=== PATIENT | male | born 1945 | race Caucasian/White ===

== ENCOUNTER 2019-06-04 10:28 | Emergency (ER) | payer MEDICARE, OTHER ==
--- OUTSIDE RECORDS SUMMARY | 2019-06-04 10:31 | XMS REPORT ---
:1945 Author Organization [facility] Address [address] [place] [address] Care Team Providers Name Role Phone MELIDA CERDA Unavailable Unavailable Problems This patient has no known problems. Allergies, Adverse Reactions, Alerts This patient has no known allergies or adverse reactions. Medications This patient has no known medications. Results Test Description Test Time Test Comments Text Results Atomic Results Result Comments POCT-GLUCOSE METER 2016-11-06 11:43:00 Test Item Value Reference Range Comments POC-GLUCOSE METER (BEAKER) (test 338 mg/dL 70-110 TESTED AT [address] qqtj=2628) [facility] [id number] POCT-GLUCOSE [id number] 08:19:00 Test Item Value Reference Range Comments POC-GLUCOSE METER (BEAKER) 191 mg/dL 70-110 TESTED AT [address] (test mpcf=5335) [facility] [address] POCT-GLUCOSE [id number] 21:37:00 Test Item Value Reference Range Comments POC-GLUCOSE METER (BEAKER) 261 mg/dL 70-110 TESTED AT [address] (test ladf=0043) [facility] [address] POCT-GLUCOSE [id number] 17:07:00 Test Item Value Reference Range Comments POC-GLUCOSE METER (BEAKER) 351 mg/dL 70-110 Notified JON GONZALES/TESTED AT [facility] (test rbqt=1438) [address] [place] [address] SEDIMENTATION [id number] 09:39:00 Test Item Value Reference Range Comments SEDIMENTATION RATE, ERYTHROCYTE (BEAKER) (test 18 mm/HR 0-40 ynhs=348) [id number] 08:51:00 Test Item Value Reference Range Comments RPR SCREEN (BEAKER) (test wqrd=936) Nonreactive Nonreactive POCT-GLUCOSE [id number] 08:15:00 Test Item Value Reference Range Comments POC-GLUCOSE METER (BEAKER) 163 mg/dL 70-110 TESTED AT [facility] [address] (test ovxg=3154) [facility] [address] BASIC METABOLIC [id number] 06:42:00 Test Item Value Reference Range Comments SODIUM (BEAKER) (test 139 meq/L 136-145 apum=390) POTASSIUM (BEAKER) (test 3.5 meq/L 3.5-5.1 uwmu=911) CHLORIDE (BEAKER) (test 102 meq/L 98-107 truz=154) CO2 (BEAKER) (test 25 meq/L 22-29 opdu=295) BLOOD UREA NITROGEN 17 mg/dL 7-21 (BEAKER) (test hgdq=149) CREATININE (BEAKER) (test 1.07 mg/dL 0.57-1.25 vpfu=362) GLUCOSE RANDOM (BEAKER) 115 mg/dL 70-105 (test aubd=167) CALCIUM (BEAKER) (test 9.1 mg/dL 8.4-10.2 ztjm=687) EGFR (BEAKER) (test 69 mL/min/1.73 sq m ESTIMATED GFR IS NOT gwqr=2626) ACCURATE CREATININE CLEARANCE IN PREDICTING GLOMERULAR FILTRATION RATE. ESTIMATED GFR IS NOT APPLICABLE FOR DIALYSIS PATIENTS. C-REACTIVE [id number] 06:42:00 Test Item Value Reference Range Comments C-REACTIVE PROTEIN (BEAKER) (test gnhc=186) 0.45 mg/dL 0.00-0.50 TSH/FREE T4 IF [id number] 06:41:00 Test Item Value Reference Range Comments THYROID STIMULATING HORMONE (BEAKER) (test 3.71 uIU/mL 0.35-4.94 pocx=376) VITAMIN B12 AND [id number] 06:41:00 Test Item Value Reference Range Comments VITAMIN B12 (BEAKER) (test xkqy=915) 686 pg/mL 213-816 FOLATE (BEAKER) (test bdlz=580) 14.7 ng/mL >=7.0 Effective 03/03/2014: Folate Reference Range ChangeNew: >=7.0 Previous: & gt;=[id number] 21:39:00 Test Item Value Reference Range Comments PROSTATE SPECIFIC ANTIGEN (BEAKER) (test okhz=172) 1.1 ng/mL 0.0-4.0 POCT-GLUCOSE [id number] 21:08:00 Test Item Value Reference Range Comments POC-GLUCOSE METER (BEAKER) 254 mg/dL 70-110 TESTED AT [facility] [address] [facility] (test nlwj=9619) [facility] [address] HEMOGLOBIN [id number] 20:39:00 Test Item Value Reference Range Comments HEMOGLOBIN A1C (BEAKER) (test jaav=188) 8.7 % 4.3-6.1 LIPID [id number] 19:44:00 Test Item Value Reference Range Comments TRIGLYCERIDES (BEAKER) (test menm=249) 341 mg/dL CHOLESTEROL (BEAKER) (test avhz=278) 218 mg/dL HDL CHOLESTEROL (BEAKER) (test jycg=126) 32 mg/dL LDL CHOLESTEROL CALCULATED (BEAKER) (test 118 mg/dL rcet=002) Triglyceride Reference Range: Low Risk <150 Borderline 150- 199 High Risk 200-499 Very High Risk >=500Cholesterol Reference Range: Low Risk <200 Borderline 200-239 High Risk > 240HDL Cholesterol Reference Range: Low Risk >=60 High Risk <40LDL Cholesterol Reference Range: Optimal <100 Near Optimal 100-129 Borderline 130-159 High 160-189 Very High >=190HEPATIC FUNCTION [id number] 19:44:00 Test Item Value Reference Range Comments TOTAL PROTEIN (BEAKER) (test pgui=974) 7.3 gm/dL 6.0-8.3 ALBUMIN (BEAKER) (test auoc=8006) 4.5 g/dL 3.5-5.0 BILIRUBIN TOTAL (BEAKER) (test oala=027) 0.4 mg/dL 0.2-1.2 BILIRUBIN DIRECT (BEAKER) (test fpnk=213) 0.1 mg/dL 0.1-0.5 ALKALINE PHOSPHATASE (BEAKER) (test ubkp=564) 69 U/L 40-150 AST (SGOT) (BEAKER) (test nfgm=811) 24 U/L 5-34 ALT (SGPT) (BEAKER) (test pvch=836) 28 U/L 6-55 [id number] 19:43:00 Test Item Value Reference Range Comments PHOSPHORUS (BEAKER) (test nlrk=278) 3.3 mg/dL 2.3-4.7 [id number] 19:43:00 Test Item Value Reference Range Comments MAGNESIUM (BEAKER) (test jhxg=004) 1.4 mg/dL 1.6-2.6 CBC W/PLT COUNT & AUTO [id number] 18:52:00 Test Item Value Reference Range Comments WHITE BLOOD CELL COUNT (BEAKER) (test rkvy=959) 7.6 K/ L 4.0-10.0 RED BLOOD CELL COUNT (BEAKER) (test ostf=129) 4.38 M/ L 4.20-5.80 HEMOGLOBIN (BEAKER) (test wygl=019) 13.6 GM/DL 13.0-16.8 HEMATOCRIT (BEAKER) (test kire=451) 39.2 % 40.0-50.0 MEAN CORPUSCULAR VOLUME (BEAKER) (test espl=741) 89.5 fL 82.0-98.0 MEAN CORPUSCULAR HEMOGLOBIN (BEAKER) (test 31.1 pg 27.0-33.0 fbon=042) MEAN CORPUSCULAR HEMOGLOBIN CONC (BEAKER) (test 34.7 GM/DL 32.0-36.0 wnet=667) RED CELL DISTRIBUTION WIDTH (BEAKER) (test 13.2 % 10.3-14.2 xblx=315) PLATELET COUNT (BEAKER) (test phdc=286) 207 K/CU MM 150-430 MEAN PLATELET VOLUME (BEAKER) (test hggj=591) 7.1 fL 6.5-10.5 NUCLEATED RED BLOOD CELLS (BEAKER) (test 0 /100 WBC 0-0 gnxe=505) NEUTROPHILS RELATIVE PERCENT (BEAKER) (test 59 % hipk=286) LYMPHOCYTES RELATIVE PERCENT (BEAKER) (test 31 % wlhk=826) MONOCYTES RELATIVE PERCENT (BEAKER) (test 7 % yeqg=463) EOSINOPHILS RELATIVE PERCENT (BEAKER) (test 3 % yhat=296) BASOPHILS RELATIVE PERCENT (BEAKER) (test 1 % xzee=520) NEUTROPHILS ABSOLUTE COUNT (BEAKER) (test 4.49 K/ L 1.80-8.00 arrq=750) LYMPHOCYTES ABSOLUTE COUNT (BEAKER) (test 2.32 K/ L 1.48-4.50 vibs=186) MONOCYTES ABSOLUTE COUNT (BEAKER) (test 0.53 K/ L 0.00-1.30 nxkt=763) EOSINOPHILS ABSOLUTE COUNT (BEAKER) (test 0.22 K/ L 0.00-0.50 megr=071) BASOPHILS ABSOLUTE COUNT (BEAKER) (test 0.06 K/ L 0.00-0.20 iwcw=952) 0.00
--- NOTE | 2019-06-04 12:29 | EKG ---
Test Date: 2019-06-04 Test Time: 12:00:55 Turntable Man: WILLIAM MEASUREMENT RESULTS: Intervals: Rate: 61 NE: 200 QRSD: 88 QT: 446 QTc: 448 [place]: P: 47 NE: 200 QRS: -14 T: 47 INTERPRETIVE STATEMENTS: Normal sinus rhythm Low voltage QRS Borderline ECG Compared to ECG 06/14/2017 09:59:50 Low QRS voltage now present Electronically Signed On 06-04-19 12:29:19 [employer]IELD CLEANER by Jorge Ramsey
--- NOTE | 2019-06-04 12:45 | RAD REPORT ---
EXAM DESCRIPTION: CT - Head Brain Wo Cont - 06/04/2019 12:34 pm CLINICAL HISTORY: Dizziness COMPARISON: 2018 TECHNIQUE: Computed axial tomography of the head was obtained. IV contrast was not requested. All CT scans are performed using dose optimization technique as appropriate and may include automated exposure control or mA/KV adjustment according to patient size. FINDINGS: An intracranial bleed is not seen . The ventricles are normal in caliber. No extra-axial fluid collection is noted. Fluid within the sinuses/ mastoids is not seen. IMPRESSION: No acute intracranial abnormality is seen. If patient's symptoms persist MRI of the bra in would be recommended.
[2019-06-04 12:59] LABS: Absolute Lymphocytes (CBC) 1.5 K/uL (0.7-4.9); Basophils % 0.5 % (0-1.3); Lymphocytes % 20.9 % (15.3-44.8); MPV 8.3 fL (7.6-11.3); Protime INR 0.99; RBC Red Blood Cell Count 4.15 M/uL (4.33-5.43)
[2019-06-04 13:11] LABS: BUN Blood Urea Nitrogen 14 mg/dL (7-18); Bicarbonate 30 mmol/L (21-32); Glucose Level 219 mg/dL (74-106); Potassium 3.9 mmol/L (3.5-5.1); Sodium Level 139 mmol/L (136-145); Troponin (Emerg Dept Use Only) < 0.02 ng/mL (0.0-0.045)
--- NOTE | 2019-06-04 13:53 | RAD REPORT ---
EXAM DESCRIPTION: CT - Head angio - 06/04/2019 1:42 pm CLINICAL HISTORY: DIZZINESS Headache, drowsiness, hypertension COMPARISON: Head Brain Wo Cont dated 06/04/2019; Head Brain Wo Cont dated 06/14/2017 TECHNIQUE: CT angiography of the head was performed with MIPs. All CT scans are performed using dose optimization technique as appropriate and may include automated exposure control or mA/KV adjustment according to patient size. FINDINGS: No evidence of aneurysm is detected. No flow-limiting stenosis or vascular malformation id entified. Antegrade flow is seen in the vertebral arteries. The vertebral arteries are codominant. The visualized dural venous sinuses are patent. IMPRESSION: No significant flow abnormality is detected.
--- NOTE | 2019-06-04 13:56 | RAD REPORT ---
EXAM DESCRIPTION: CT - Neck Angio - 06/04/2019 1:42 pm CLINICAL HISTORY: dizziness Headache, drowsiness, syncope COMPARISON: No comparisons TECHNIQUE: CT angiography of the neck vessels was performed with MIPs. All CT scans are performed using dose optimization technique as appropriate and may include automated exposure control or mA/KV adjustment according to patient size. 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 No significant flow abnormality is seen of the common carotid bilaterally. No significant stenosis is identified involving the cervical segments of both internal carotid arteri es. Normal flow is seen within both vertebral arteries. IMPRESSION: No significant flow abnormality of the neck vessels is identified.
--- NOTE | 2019-06-04 14:23 | ER ---
Nurse's Notes [facility] Name: Jaxon Ayala III Age: 73 yrs Sex: Male : 1945 Arrival Date: 06/04/2019 Time: 10:30 Bed 5 Private MD: Diagnosis: Dizziness and giddiness Presentation: 06/04 11:07 Presenting complaint: Patient states: had some high BP readings this morning, BP was in iw 180's systolic, normally is in 110's takes lisinopril and metoprolol for BP, has not missed any doses, also was feeling weak and dizzy this morning, denies chest pain, no headache or blurry vision, did not have an appetite this morning. Transition of care: patient was not received from another setting of care. Onset of symptoms was June 04, 2019. Risk Assessment: Do you want to hurt yourself or someone else? Patient reports no desire to harm self or others. Initial Sepsis Screen: Does the patient meet any 2 criteria? No. Patient's initial sepsis screen is negative. Does the patient have a suspected source of infection? No. Patient's initial sepsis screen is negative. Care prior to arrival: None. 11:07 Method Of Arrival: Ambulatory iw 11:07 Acuity: DEMI 3 iw Historical: - Allergies: 11:14 Morphine; iw - Home Meds: 11:14 atorvastatin 40 mg oral tab 1 tab once daily [Active]; alpha lipoic acid 100 mg oral iw cap daily [Active]; chondroitin-glucosamine daily [Active]; clopidogrel 75 mg oral tab 1 tab once daily [Active]; coenzyme Q10 10 mg oral cap daily [Active]; cyanocobalamin (vitamin B-12) 1,000 mcg oral tab daily [Active]; diclofenac-capsicum topical topical [Active]; gabapentin 300 mg oral cap 1 cap 3 times per day [Active]; hydrochlorothiazide 25 mg Oral tab 0.5 tab once daily [Active]; insulin aspart subcutaneous subcutaneous after meals [Active]; insulin detemir subcutaneous 90 units subcutaneous [Active]; isosorbide mononitrate 60 mg Oral Tb24 1 tab once daily [Active]; lisinopril 40 mg Oral tab 1 tab once daily [Active]; metoprolol tartrate 100 mg Oral tab 1 tab 2 times per day [Active]; ranitidine HCl 150 mg Oral cap 1 cap once daily [Active]; terazosin 10 mg oral cap 1 cap once daily [Active]; zolpidem 5 mg Oral tab 1 tab once daily [Active]; - PMHx: 11:14 CAD; Diabetes - IDDM; Hyperlipidemia; Hypertension; TIA; iw - PSHx: 11:14 cardiac stent; Hernia repair; Knee surgery; iw - Immunization history:: Adult Immunizations up to date. - Coronavirus screen:: The patient has NOT traveled to [place] in the past 14 days. Proceed with normal triage process as indicated. - Social history:: Smoking status: Patient/guardian denies using tobacco, the patient reports quitting approximately 30 years ago. - Family history:: not pertinent. - Ebola Screening: : Patient negative for fever greater than or equal to 101.5 degrees Fahrenheit, and additional compatible Ebola Virus Disease symptoms Patient denies exposure to infectious person Patient denies travel to an Ebola-affected area in the 21 days before illness onset No symptoms or risks identified at this time. - Hospitalizations: : No recent hospitalization is reported. Screenin:48 Abuse screen: Denies threats or abuse. Nutritional screening: No deficits noted. rb1 Tuberculosis screening: No symptoms or risk factors identified. Fall Risk None identified. Assessment: 11:48 General: Appears in no apparent distress. comfortable, Behavior is calm, cooperative. rb1 Pain: Denies pain. Neuro: Level of Consciousness is awake, alert, obeys commands, Oriented to person, place, time, situation. Neuro: Reports dizziness, This morning for about 30-40 minutes while his blood pressure was elevated. Pt. reports symptoms have resolved at this time weakness. 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 Cardiovascular: Capillary refill < 3 seconds is brisk in bilateral fingers. Respiratory: Airway is patent Respiratory effort is even, unlabored, Respiratory pattern is regular, symmetrical. GI: No signs and/or symptoms were reported involving the gastrointestinal system. : No signs and/or symptoms were reported regarding the genitourinary system. Derm: Skin is pink, warm \T\ dry. Musculoskeletal: Range of motion: intact in all extremities. 12:45 Reassessment: Patient appears in no apparent distress at this time. No changes from rb1 previously documented assessment. 13:43 Reassessment: Patient appears in no apparent distress at this time. Patient and/or rb1 family updated on plan of care and expected duration. Pain level reassessed. Patient is alert, oriented x 3, equal unlabored respirations, skin warm/dry/pink. Patient denies pain at this time. 14:42 Reassessment: Patient appears in no apparent distress at this time. No changes from rb1 previously documented assessment. Vital Signs: 11:14 BP 148 / 69; Pulse 56; Resp 16; Temp 97.9; Pulse Ox 97% on R/A; Weight 113.4 kg; Height iw 5 ft. 10 in. (177.80 cm); Pain 0/10; 12:00 BP 138 / 66; Pulse 57; Resp 19; Pulse Ox 99% on R/A; Pain 0/10; rb1 12:58 BP 144 / 56; Pulse 54; Resp 18; Pulse Ox 99% on R/A; ph 14:39 BP 141 / 70; Pulse 57; Resp 16; Temp 97.5; Pulse Ox 98% on R/A; ph 11:14 Body Mass Index 35.87 (113.40 kg, 177.80 cm) iw ED Course: 10:30 Patient arrived in ED. rg4 11:09 Triage completed. iw 11:14 Arm band placed on. iw 11:41 Wiliam Purcell MD is Attending Physician. rn 11:48 Patient has correct armband on for positive identification. Placed in gown. Bed in low rb1 position. Call light in reach. Side rails up X 1. engraver set up operator on. Pulse ox on. NIBP on. Warm blanket given. 12:01 EKG done, by substation technician. reviewed by Wiliam Purcell MD. at1 12:29 Juliet Pérez, RN is Primary Nurse. ph 12:43 CT Head Brain wo Cont In Process Unspecified. EDMS 12:48 Inserted saline lock: 22 gauge in left antecubital area, using aseptic technique. Blood ph collected. 13:51 CT Head Angio In Process Unspecified. EDMS 13:51 CT Neck Angio In Process Unspecified. EDMS 14:22 Jere Johnson MD is Referral Physician. rn 14:39 No provider procedures requiring assistance completed. ph 14:45 IV discontinued, intact, bleeding controlled, No redness/swelling at site. Pressure rb1 dressing applied. Administered Medications: No medications were administered Outcome: 14:22 Discharge ordered by . rn 14:45 Discharged to home ambulatory, with family. rb1 14:45 Condition: stable 14:45 Discharge instructions given to patient, Instructed on discharge instructions, follow up and referral plans. Demonstrated understanding of instructions, follow-up care, Prescriptions given X none 14:46 Patient left the ED. rb1 Signatures: Dispatcher [employer] EDRaina Almaguer RN RN iw Wiliam Purcell MD MD rn Amanda Daniel, recycling operations manager EKG Tat1 Juliet Pérez RN RN Cindi Ansari RN RN rb1 Pedro, Leda rg4
--- NOTE | 2019-06-04 14:24 | EDPHYS ---
Physician Documentation [facility] Name: Jaxon Ayala III Age: 73 yrs Sex: Male : 1945 Arrival Date: 06/04/2019 Time: 10:30 Bed 5 Private MD: ED Physician Wiliam Purcell HPI: 06/04 12:11 This 73 yrs old Male presents to ER via Ambulatory with complaints of High rn Blood Pressure, Dizziness. 12:11 The patient presents with dizziness. Onset: The symptoms/episode began/occurred just rn prior to arrival. Context: occurred at home, occurred while the patient was at rest. Context: occurred while the patient was standing. Modifying factors: The symptoms are alleviated by. Modifying factors: the symptoms are aggravated by standing up. Severity of symptoms: At their worst the symptoms were mild in the emergency department the symptoms have improved. The patient has not experienced similar symptoms in the past. Reports was at home, got up to get some more coffee, felt dizziness, no other neurological complaint, lasted approx 30-40 min, now resolved. Has had TIA in past. NO chest pain/sob/abd pain/vomiting/diarrhea. . Historical: - Allergies: 11:14 Morphine; iw - Home Meds: 11:14 atorvastatin 40 mg oral tab 1 tab once daily [Active]; alpha lipoic acid 100 mg oral iw cap daily [Active]; chondroitin-glucosamine daily [Active]; clopidogrel 75 mg oral tab 1 tab once daily [Active]; coenzyme Q10 10 mg oral cap daily [Active]; cyanocobalamin (vitamin B-12) 1,000 mcg oral tab daily [Active]; diclofenac-capsicum topical topical [Active]; gabapentin 300 mg oral cap 1 cap 3 times per day [Active]; hydrochlorothiazide 25 mg Oral tab 0.5 tab once daily [Active]; insulin aspart subcutaneous subcutaneous after meals [Active]; insulin detemir subcutaneous 90 units subcutaneous [Active]; isosorbide mononitrate 60 mg Oral Tb24 1 tab once daily [Active]; lisinopril 40 mg Oral tab 1 tab once daily [Active]; metoprolol tartrate 100 mg Oral tab 1 tab 2 times per day [Active]; ranitidine HCl 150 mg Oral cap 1 cap once daily [Active]; terazosin 10 mg oral cap 1 cap once daily [Active]; zolpidem 5 mg Oral tab 1 tab once daily [Active]; - PMHx: 11:14 CAD; Diabetes - IDDM; Hyperlipidemia; Hypertension; TIA; iw - PSHx: 11:14 cardiac stent; Hernia repair; Knee surgery; iw - Immunization history:: Adult Immunizations up to date. - Coronavirus screen:: The patient has NOT traveled to [place] in the past 14 days. Proceed with normal triage process as indicated. - Social history:: Smoking status: Patient/guardian denies using tobacco, the patient reports quitting approximately 30 years ago. - Family history:: not pertinent. - Ebola Screening: : Patient negative for fever greater than or equal to 101.5 degrees Fahrenheit, and additional compatible Ebola Virus Disease symptoms Patient denies exposure to infectious person Patient denies travel to an Ebola-affected area in the 21 days before illness onset No symptoms or risks identified at this time. - Hospitalizations: : No recent hospitalization is reported. ROS: 12:11 Constitutional: Negative for fever, chills, and weight loss, Eyes: Negative for injury, rn pain, redness, and discharge, Neck: Negative for injury, pain, and swelling, Cardiovascular: Negative for chest pain, palpitations, and edema, Respiratory: Negative for shortness of breath, cough, wheezing, and pleuritic chest pain, Abdomen/GI: Negative for abdominal pain, nausea, vomiting, diarrhea, and constipation, MS/Extremity: Negative for injury and deformity, Skin: Negative for injury, rash, and discoloration, Neuro: Negative for headache, weakness, numbness, tingling, and seizure. Exam: 12:11 Constitutional: This is a well developed, well nourished patient who is awake, alert, rn and in no acute distress. Head/Face: Normocephalic, atraumatic. Eyes: Pupils equal round and reactive to light, extra-ocular motions intact. + left bells palsy Cardiovascular: Regular rate and rhythm. No pulse deficits. Respiratory: No increased work of breathing, no retractions or nasal flaring. Abdomen/GI: soft, non-tender Skin: Warm, dry MS/ Extremity: Pulses equal, no cyanosis. Neurovascular intact. Full, normal range of motion. Equal circumference. Neuro: Awake and alert, GCS 15, oriented to person, place, time, and situation. Cranial nerves II-XII grossly intact. Motor strength 5/5 in all extremities. Sensory grossly intact. Cerebellar exam normal. Vital Signs: 11:14 BP 148 / 69; Pulse 56; Resp 16; Temp 97.9; Pulse Ox 97% on R/A; Weight 113.4 kg; Height iw 5 ft. 10 in. (177.80 cm); Pain 0/10; 12:00 BP 138 / 66; Pulse 57; Resp 19; Pulse Ox 99% on R/A; Pain 0/10; rb1 12:58 BP 144 / 56; Pulse 54; Resp 18; Pulse Ox 99% on R/A; ph 14:39 BP 141 / 70; Pulse 57; Resp 16; Temp 97.5; Pulse Ox 98% on R/A; ph 11:14 Body Mass Index 35.87 (113.40 kg, 177.80 cm) iw MDM: 11:41 Patient medically screened. rn 14:19 Differential diagnosis: hypovolemia, idiopathic dizziness, TIA, vertigo, malignant HTN. rn Data reviewed: vital signs, nurses notes, lab test result(s), EKG, radiologic studies, CT scan, and as a result, I will discharge patient. Counseling: I had a detailed discussion with the patient and/or guardian regarding: the historical points, exam findings, and any diagnostic results supporting the discharge/admit diagnosis, lab results, radiology results, the need for outpatient follow up, to return to the emergency department if symptoms worsen or persist or if there are any questions or concerns that arise at home. Response to treatment: the patient's symptoms have resolved after treatment, the patient's condition has returned to base line, the patient is now symptom free, and as a result, I will discharge patient. Special discussion: I discussed with the patient/guardian in detail that at this point there is no indication for admission to the hospital. It is understood, however, that if the symptoms persist or worsen the patient needs to return immediately for re-evaluation. Based on the history and exam findings, there is no indication for further emergent testing or inpatient evaluation. I discussed with the patient/guardian the need to see the neurologist for further evaluation of the symptoms. I discussed with the patient/guardian the need to see the primary care provider for further evaluation of the symptoms. ED course: Pt back to baseline, difficult to tell if symptoms as result of HTN, or maybe TIA, already on plavix and aspirin, no acute flow findings on CT angio of head/neck, will dc home with neuro and pcp f/u. Return precautions given and understood. . 06/04 11:58 Order name: Basic Metabolic Panel; Complete Time: 13:42 rn 06/04 11:58 Order name: CBC with Diff; Complete Time: 13:03 rn 06/04 11:58 Order name: CT Head Brain wo Cont; Complete Time: 13:42 rn 06/04 11:58 Order name: Protime (+inr); Complete Time: 13:03 rn 06/04 11:58 Order name: Ptt, Activated; Complete Time: 13:03 rn 06/04 11:58 Order name: Troponin (emerg Dept Use Only); Complete Time: 13:42 rn 06/04 11:58 Order name: EKG; Complete Time: 11:59 rn 06/04 11:58 Order name: Cardiac monitoring; Complete Time: 12:53 rn 06/04 11:58 Order name: EKG - Nurse/Tech; Complete Time: 12:58 rn 06/04 11:58 Order name: IV Saline Lock; Complete Time: 12:53 rn 06/04 11:58 Order name: Labs collected and sent; Complete Time: 12:53 rn 06/04 11:58 Order name: NPO; Complete Time: 12:58 rn 06/04 13:03 Order name: CT Head Angio rn 06/04 13:03 Order name: CT Neck Angio rn 06/04 11:58 Order name: O2 Per Protocol; Complete Time: 12:58 rn 06/04 11:58 Order name: O2 Sat Monitoring; Complete Time: 12:58 rn Administered Medications: No medications were administered Disposition: 06/04/19 14:22 Discharged to Home. Impression: Dizziness and giddiness. - Condition is Stable. - Discharge Instructions: Dizziness, Transient Ischemic Attack. - Medication Reconciliation Form, Thank You Letter, Antibiotic Education, Prescription Opioid Use form. - Follow up: Jere Johnson MD; When: As needed; Reason: Recheck today's complaints, Re-evaluation by your physician. - Problem is new. - Symptoms are resolved. Signatures: Dispatcher [employer] EDRaian Almaguer, RN RN Wiliam Rosales MD MD rn Barber, Rebecca RN RN rb1 Corrections: (The following items were deleted from the chart) 12:16 12:11 Constitutional: This is a well developed, well nourished patient who is awake, rn alert, and in no acute distress. rn 14:20 12:11 Constitutional: This is a well developed, well nourished patient who is awake, rn alert, and in no acute distress. Head/Face: Normocephalic, atraumatic. Cardiovascular: Regular rate and rhythm. No pulse deficits. Respiratory: No increased work of breathing, no retractions or nasal flaring. Abdomen/GI: soft, non-tender Skin: Warm, dry MS/ Extremity: Pulses equal, no cyanosis. Neurovascular intact. Full, normal range of motion. Equal circumference. Neuro: Awake and alert, GCS 15, oriented to person, place, time, and situation. Cranial nerves II-XII grossly intact. Motor strength 5/5 in all extremities. Sensory grossly intact. Cerebellar exam normal. rn 14:46 14:22 06/04/2019 14:22 Discharged to Home. Impression: Dizziness and giddiness. rb1 Condition is Stable. Forms are Medication Reconciliation Form, Thank You Letter, Antibiotic Education, Prescription Opioid Use. Follow up: Jere Johnson; When: As needed; Reason: Recheck today's complaints, Re-evaluation by your physician. Problem is new. Symptoms are resolved. rn
[2019-06-04 16:33] VITALS: BP 141/70; TEMP 97.5; O2SAT 98
== END 2019-06-04 14:46 | disposition home or self-care (01) ==
LOC: ER 10:28
DX: R42 Dizziness and giddiness (principal); I10 Essential (primary) hypertension; E11.9 Type 2 diabetes mellitus without complications; E78.5 Hyperlipidemia, unspecified; Z79.4 Long term (current) use of insulin; Z79.01 Long term (current) use of anticoagulants; Z95.9 Presence of cardiac and vascular implant and graft, unspecified
CPT/HCPCS: 93005; 85025; 80048; 36415; 85610; 85730; 84484; 70450; 70496; 70498; Q9967

== ENCOUNTER 2022-03-31 10:51 | Observation (INO) | payer OTHER ==
--- OUTSIDE RECORDS SUMMARY | 2022-03-31 10:54 | XMS REPORT | Continuity of Care Document ---
:1945 Author Organization [facility] t Address [facility] [address] [place] [address] Care Team Providers Name Role Phone Sharpless Primary Care Physician MELIDA CERDA Attending Clinician Unavailable MELIDA CERDA Admitting Clinician Unavailable Problems Condition Condition Condition Status Onset Resolution Last Treating Co mments Source Name Details Category Date Date Treatment Clinician Date TIA TIA Disease Active [facility] (transient (transient 11-04 [facility] ischemic ischemic 00:00: Medica l attack) attack) 00 [place] CAD CAD Disease Active [facility] (coronary (coronary 11-04 [facility] artery artery 00:00: Medical disease) disease) 00 [place] Hypertensi Hypertensi Disease Active [facility] on 11-04 [facility] 00:[facility]: Medical 00 [place] Hyperchole Hyperchole Disease Active [facility] sterolemia sterolemia 11-04 [facility] 00:00: Medical 00 Center Allergies, Adverse Reactions, Alerts Allergy Allergy Status Severity Reaction(s) Onset Inactive Treating Comm ents Source Name Type Date Date Clinician Ragweed Propensi Active Moderate [facility] 11[facility]04 [facility] adverse 00:00: sneezing Medical reaction 00 Center s Social History Social Habit Start Date Stop Date Quantity Comments Source Sex Assigned At [address] [facility]ene kes 00:00:00 00:[facility]:00 [facility] Medications Ordered Filled Start Stop Current Ordering Indication Dosage Frequency Signature Comments Components Source Medication Medication Date Date Medication? Clinician (SIG) Name Name gabapentin Yes 300mg QD Take [address] (NEURONTIN) 7-24 mg by [facility] 300 MG 14:40: mouth Medical capsule 16 nightly. 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 hydroCHLORO 2017 Yes 12.5mg QD Take 12.[address] [facility] thiazide 7-24 mg by [facility] (HYDRODIURI 14:40: mouth Medic al L) 25 MG 16 every Center tablet morning. insulin 2017 Yes 10U Inject 10 [facility] aspart 7-24 Units [facility] (NOVOLOG) 14:40: subcutaneo Me dical 100 unit/mL 16 usly every Ce nter InPn evening before dinner. insulin 2017 Yes 100U Q.5D Inject [address] [facility] [address] detemir 7-24 Units [facility] (LEVEMIR) 14:40: subcutaneo Me dical 100 unit/mL 16 usly 2 Center injection (two) times daily Every morning and evening . lisinopril Yes hypertensio 40mg QD Take [address] [facility] (PRINIVIL,Z 7-24 n by mouth [facility] ESTRIL) 40 14:40: daily. Medic al MG tablet 16 [place] metFORMIN Yes 1000mg Q.5D Take 1,[address] [facility] (GLUCOPHAGE 7-24 mg by [facility] ) 500 MG 14:40: mouth 2 Medica l tablet 16 (two) Center times daily. metoprolol 2017 Yes hypertensio 25mg Q.5D Take [address] [facility] (LOPRESSOR) 7-24 n by mouth 2 [facility]ene kes 50 MG 14:40: (two) Medical tablet 16 times Center daily. omeprazole 2017-0 Yes 20mg QD Take [address] (PRILOSEC 7-24 by mouth [facility] OTC) 20 MG 14:40: daily. Medic al tablet 16 Center terazosin 2017 Yes 10mg QD Take [address] [facility] (HYTRIN) 10 7-24 by mouth [facility] MG capsule 14:40: nightly. Med ical 16 [place] zolpidem 20170 Yes 5mg Take [address] [facility] (AMBIEN) 5 7-24 by mouth [facility] MG tablet 14:40: every Medical 16 night as Center needed for Insomnia. aspirin 81 Yes 81mg QD Take [address] MG chewable 7-24 by mouth [facility] tablet 14:40: daily. Medical 16 Center atorvastati Yes 40mg QD Take [address] [facility] n (LIPITOR) 7-24 by mouth [facility] 40 MG 14:40: nightly. Medical tablet 16 Center Procedures This patient has no known procedures. Results Test Description Test Time Test Comments Results Result Comments Source POCT-GLUCOSE METER 2016-11-06 11:43:00 Test Item Value Reference Range Interpretation Comme nts POC-GLUCOSE METER ([facility]) (test 338 mg/dL 70-110 H TESTED AT [address] code = 1538) [facility] 7703 0 POCT-GLUCOSE [id number] 08:19:00 Test Item Value Reference Range Interpretation Comments POC-GLUCOSE METER 191 mg/dL 70-110 H TESTED AT [place] [address] ([facility]) (test code = AMANDA [facility] 1538) [address] POCT-GLUCOSE [id number] 21:37:00 Test Item Value Reference Range Interpretation Comments POC-GLUCOSE METER 261 mg/dL 70-110 H TESTED AT [place] [address] ([facility]) (test code = [facility]DA [facility] 1538) [address] POCT-GLUCOSE [id number] 17:07:00 Test Item Value Reference Range Interpretation Comments POC-GLUCOSE METER 351 mg/dL 70-110 H Notified R Kena GONZALES/TESTED ([facility]) (test code = AT [address] 1538) [facility] 7703 0 SEDIMENTATION [id number] 09:39:00 Test Item Value Reference Range Interpretation Comments SEDIMENTATION RATE, ERYTHROCYTE 18 mm/HR 0-40 ([facility]) (test code = 766) [id number] 08:51:00 Test Item Value Reference Range Interpretation Comments RPR SCREEN ([facility]) (test code = Nonreactive Nonreactive 420) POCT-GLUCOSE [id number] 08:15:00 Test Item Value Reference Range Interpretation Comments POC-GLUCOSE METER 163 mg/dL 70-110 H TESTED AT [place] [address] ([facility]) (test code = [facility]DA [facility] 2876) [address] BASIC METABOLIC [id number] 06:42:00 Test Item Value Reference Range Interpretation Comments SODIUM (BEAKER) 139 meq/L 136-145 (test code = 381) POTASSIUM (BEAKER) 3.5 meq/L 3.5-5.1 (test code = 379) CHLORIDE (BEAKER) 102 meq/L 98-107 (test code = 382) CO2 (BEAKER) (test 25 meq/L 22-29 code = 355) BLOOD UREA NITROGEN 17 mg/dL 7-21 (BEAKER) (test code = 354) CREATININE (BEAKER) 1.07 mg/dL 0.57-1.25 (test code = 358) GLUCOSE RANDOM 115 mg/dL 70-105 H (BEAKER) (test code = 652) CALCIUM (BEAKER) 9.1 mg/dL 8.4-10.2 (test code = 697) EGFR (BEAKER) (test 69 mL/min/1.73 ESTIMA UMER GFR IS code = 1092) sq m NOT ACCURATE CREATININE CLEARANCE IN PREDICTING GLOMERULAR FILTRATION RATE . ESTIMATED GFR I S NOT APPLICABLE FOR DIALYSIS PATIMARK TS. C-REACTIVE [id number] 06:42:00 Test Item Value Reference Range Interpretation Comments C-REACTIVE PROTEIN (BEAKER) (test 0.45 mg/dL 0.00-0.50 code = 676) TSH/FREE T4 IF [id number] 06:41:00 Test Item Value Reference Range Interpretation Comments THYROID STIMULATING HORMONE 3.71 uIU/mL 0.35-4.94 (BEAKER) (test code = 772) VITAMIN B12 AND [id number] 06:41:00 Test Item Value Reference Range Interpretation Comments VITAMIN B12 (BEAKER) (test code = 686 pg/mL 213-816 464) FOLATE (BEAKER) (test code = 362) 14.7 ng/mL >=7.0 Effective 03/03/2014: Folate Reference Range ChangeNew: >=7.0 Previous: >=[id number] 21:39:00 Test Item Value Reference Range Interpretation Comments PROSTATE SPECIFIC ANTIGEN (BEAKER) 1.1 ng/mL 0.0-4.0 (test code = 844) POCT-GLUCOSE [id number] 21:08:00 Test Item Value Reference Range Interpretation Comments POC-GLUCOSE METER 254 mg/dL 70-[address] [facility] 6720 ([facility] (test code = [place] 1538) [address] HEMOGLOBIN [id number] 20:39:00 Test Item Value Reference Range Interpretation Comments HEMOGLOBIN A1C (BEAKER) (test code = 8.7 % 4.3-6.1 H 368) LIPID [id number] 19:44:00 Test Item Value Reference Range Interpretation Comments TRIGLYCERIDES (BEAKER) (test code = 341 mg/dL 540) CHOLESTEROL (BEAKER) (test code = 218 mg/dL 631) HDL CHOLESTEROL (BEAKER) (test code 32 mg/dL = 976) LDL CHOLESTEROL CALCULATED (AKER) 118 mg/dL (test code = 633) Triglyceride Reference Range: Low Risk <150 Borderline 150-199 High Risk 200- 499 Very High Risk >=500Cholesterol Reference Range: Low Risk <200 Borderline 200-239 High Risk >240HDL Cholesterol Reference Range: Low Risk >=60 High Risk <40LDL Cholesterol Reference Range: Optimal <100 Near Optimal 100-129 Borderline 130-159 High 160-189 Very High >=190HEPATIC FUNCTION [id number] 19:44:00 Test Item Value Reference Range Interpretation Comments TOTAL PROTEIN (BEAKER) (test code = 7.3 gm/dL 6.0-8.3 770) ALBUMIN (BEAKER) (test code = 1145) 4.5 g/dL 3.5-5.0 BILIRUBIN TOTAL (BEAKER) (test code 0.4 mg/dL 0.2-1.2 = 377) BILIRUBIN DIRECT (BEAKER) (test 0.1 mg/dL 0.1-0.5 code = 706) ALKALINE PHOSPHATASE (BEAKER) (test 69 U/L 40-150 code = 346) AST (SGOT) (BEAKER) (test code = 24 U/L 5-34 353) ALT (SGPT) (BEAKER) (test code = 28 U/L 6-55 347) [id number] 19:43:00 Test Item Value Reference Range Interpretation Comments PHOSPHORUS (BEAKER) (test code = 3.3 mg/dL 2.3-4.7 604) [id number] 19:43:00 Test Item Value Reference Range Interpretation Comments MAGNESIUM (BEAKER) (test code = 1.4 mg/dL 1.6-2.6 L 627) CBC W/PLT COUNT & AUTO [id number] 18:52:00 Test Item Value Reference Range Interpretation Comments WHITE BLOOD CELL COUNT (BEAKER) 7.6 K/ L 4.0-10.0 (test code = 775) RED BLOOD CELL COUNT (BEAKER) 4.38 M/ L 4.20-5.80 (test code = 761) HEMOGLOBIN (BEAKER) (test code = 13.6 GM/DL 13.0-16.8 410) HEMATOCRIT (BEAKER) (test code = 39.2 % 40.0-50.0 L 411) MEAN CORPUSCULAR VOLUME (BEAKER) 89.5 fL 82.0-98.0 (test code = 753) MEAN CORPUSCULAR HEMOGLOBIN 31.1 pg 27.0-33.0 (BEAKER) (test code = 751) MEAN CORPUSCULAR HEMOGLOBIN CONC 34.7 GM/DL 32.0-36.0 (BEAKER) (test code = 752) RED CELL DISTRIBUTION WIDTH 13.2 % 10.3-14.2 (BEAKER) (test code = 412) PLATELET COUNT (BEAKER) (test 207 K/CU MM 150-430 code = 756) MEAN PLATELET VOLUME (BEAKER) 7.1 fL 6.5-10.5 (test code = 754) NUCLEATED RED BLOOD CELLS 0 /100 WBC 0-0 (BEAKER) (test code = 413) NEUTROPHILS RELATIVE PERCENT 59 % (BEAKER) (test code = 429) LYMPHOCYTES RELATIVE PERCENT 31 % (BEAKER) (test code = 430) MONOCYTES RELATIVE PERCENT 7 % (BEAKER) (test code = 431) EOSINOPHILS RELATIVE PERCENT 3 % (BEAKER) (test code = 432) BASOPHILS RELATIVE PERCENT 1 % (BEAKER) (test code = 437) NEUTROPHILS ABSOLUTE COUNT 4.49 K/ L 1.80-8.00 (BEAKER) (test code = 670) LYMPHOCYTES ABSOLUTE COUNT 2.32 K/ L 1.48-4.50 (BEAKER) (test code = 414) MONOCYTES ABSOLUTE COUNT (BEAKER) 0.53 K/ L 0.00-1.30 (test code = 415) EOSINOPHILS ABSOLUTE COUNT 0.22 K/ L 0.00-0.50 (BEAKER) (test code = 416) BASOPHILS ABSOLUTE COUNT (BEAKER) 0.06 K/ L 0.00-0.20 (test code = 417) 0.00
[2022-03-31] MEDS ORDERED: ASPIRIN 325 MG TAB ONE (11:42)
[2022-03-31 11:53] LABS: Hematocrit 37.5 % (39.6-49.0); RBC Red Blood Cell Count 4.26 M/uL (4.33-5.43)
[2022-03-31 12:19] LABS: Albumin 3.7 g/dL (3.4-5.0); Bilirubin Total 0.7 mg/dL (0.2-1.0); Potassium 3.5 mmol/L (3.5-5.1); Protein, Total 6.8 g/dL (6.4-8.2); Troponin High Sensitivity 10.6 pg/mL (<58.9)
--- NOTE | 2022-03-31 12:30 | RAD REPORT ---
EXAM DESCRIPTION: Aracelis Single View03/31/2022 12:24 pm CLINICAL HISTORY: Chest pain COMPARISON: 2016 FINDINGS: The lungs appear clear of acute infiltrate. The heart is probably borderline enlarged IMPRESSION: No acute abnormalities displayed
--- NOTE | 2022-03-31 13:33 | EDPHYS ---
Physician Documentation [facility] Name: Jaxon Ayala III Age: 76 yrs Sex: Male : 1945 Arrival Date: 03/31/2022 Time: 10:54 Bed 15 Private MD: Kayla Young C ED Physician Isai Norwood HPI: 03/31 11:36 This 76 yrs old Male presents to ER via Ambulatory with complaints of Chest Pain. rt 11:36 The patient or guardian reports chest pain that is located primarily in the substernal rt area. 11:37 Onset: this morning. The pain does not radiate. Associated signs and symptoms: rt Pertinent positives: shortness of breath. The chest pain is described as a pressure. Duration: The patient or guardian reports a single episode, that is now resolved. Modifying factors: The symptoms are alleviated by rest, the symptoms are aggravated by activity. Severity of pain: At its worst the pain was moderate. Presents to the ED with about 3 days of exertional dyspnea, resolving with rest. Patient states that this occurs when his isosorbide wears off. He reported exertional chest pain today resolved with rest. He denies other acute complaints at this time. Patient states that he has stent placed about 1 year ago. No other aggravating or alleviating factors.. Historical: - Allergies: 11:22 Morphine; db - Home Meds: 15:27 alpha lipoic acid 100 mg Oral cap daily [Active]; aspirin 81 mg Oral chew 1 tab once db daily [Active]; atorvastatin 80 mg oral tab 1 tab nightly [Active]; chondroitin-glucosamine 1500 mg daily [Active]; clopidogrel 75 mg Oral tab 1 tab once daily [Active]; coenzyme Q10 10 mg Oral cap 1 tab daily [Active]; cyanocobalamin (vitamin B-12) 1,000 mcg Oral tab 1 tab daily [Active]; empagliflozin 25 mg oral tab .5 tab once daily [Active]; famotidine 20 mg Oral tab 1 tab 2 times per day for reflux esophagitis [Active]; Fish Oil 1,000 mg oral cap daily [Active]; glipizide 10 mg Oral tab 1 tab 2 times per day [Active]; insulin aspart subcutaneous after meals [Active]; insulin glargine 100 unit/mL Sub-Q soln twice a day [Active]; isosorbide mononitrate 60 mg Oral Tb24 1 tab once daily [Active]; lisinopril 20 mg oral tab 1 tab twice a day [Active]; multivitamin oral cap daily [Active]; terazosin 10 mg Oral cap 1 cap nightly [Active]; melatonin 5 mg Oral tab nightly [Active]; metoprolol tartrate 50 mg oral tab 2 times per day [Active]; gabapentin 300 mg Oral cap 1 cap 3 times per day [Active]; hydrochlorothiazide 50 mg oral tab 1 tab once daily [Active]; 15:42 zolpidem 5 mg Oral tab 1 tab once daily for sleep-onset insomnia [Active]; db - PMHx: 11:22 CAD; Diabetes - IDDM; Hyperlipidemia; Hypertension; TIA; db - PSHx: 11:22 Stented artery; db - Immunization history:: Client reports receiving the 2nd dose of the Covid vaccine. - Social history:: Smoking status: Patient denies any tobacco usage or history of. - Family history:: not pertinent. ROS: 11:37 Constitutional: Negative for fever, chills, and weight loss, Eyes: Negative for injury, rt pain, redness, and discharge, ENT: Negative for injury, pain, and discharge, Neck: Negative for injury, pain, and swelling, Abdomen/GI: Negative for abdominal pain, nausea, vomiting, diarrhea, and constipation, Back: Negative for injury and pain, MS/Extremity: Negative for injury and deformity, Skin: Negative for injury, rash, and discoloration, Neuro: Negative for headache, weakness, numbness, tingling, and seizure, Psych: Negative for depression, anxiety, suicide ideation, homicidal ideation, and hallucinations. 11:37 Cardiovascular: Positive for chest pain, Negative for edema. 11:37 Respiratory: Positive for shortness of breath, Negative for cough. Exam: 11:37 Constitutional: This is a well developed, well nourished patient who is awake, alert, rt and in no acute distress. Head/Face: Normocephalic, atraumatic. Eyes: Pupils equal round and reactive to light, extra-ocular motions intact. Lids and lashes normal. Conjunctiva and sclera are non-icteric and not injected. Cornea within normal limits. Periorbital areas with no swelling, redness, or edema. ENT: Nares patent. No nasal discharge, no septal abnormalities noted. Tympanic membranes are normal and external auditory canals are clear. Oropharynx with no redness, swelling, or masses, exudates, or evidence of obstruction, uvula midline. Mucous membranes moist. Neck: Trachea midline, no thyromegaly or masses palpated, and no cervical lymphadenopathy. Supple, full range of motion without nuchal rigidity, or vertebral point tenderness. No Meningismus. Chest/axilla: Normal chest wall appearance and motion. Nontender with no deformity. No lesions are appreciated. Cardiovascular: Regular rate and rhythm with a normal S1 and S2. No gallops, murmurs, or rubs. Normal PMI, no JVD. No pulse deficits. Respiratory: Lungs have equal breath sounds bilaterally, clear to auscultation and percussion. No rales, rhonchi or wheezes noted. No increased work of breathing, no retractions or nasal flaring. Abdomen/GI: Soft, non-tender, with normal bowel sounds. No distension or tympany. No guarding or rebound. No evidence of tenderness throughout. Skin: Warm, dry with normal turgor. Normal color with no rashes, no lesions, and no evidence of cellulitis. MS/ Extremity: Pulses equal, no cyanosis. Neurovascular intact. Full, normal range of motion. Neuro: Awake and alert, GCS 15, oriented to person, place, time, and situation. Cranial nerves II-XII grossly intact. Motor strength 5/5 in all extremities. Sensory grossly intact. Cerebellar exam normal. Normal gait. Psych: Awake, alert, with orientation to person, place and time. Behavior, mood, and affect are within normal limits. Vital Signs: 11:20 BP 137 / 64; Pulse 58; Resp 18; Temp 98.8; Pulse Ox 98% on R/A; Weight 112.49 kg; db Height 5 ft. 10 in. (177.80 cm); Pain 0/10; 12:30 BP 126 / 61; Pulse 54; Resp 18; Pulse Ox 99% on R/A; db 13:30 BP 121 / 65; Pulse 55; Resp 15; Pulse Ox 100% on R/A; db 17:57 BP 130 / 59; Pulse 55; Resp 16; Pulse Ox 100% on R/A; db 11:20 Body Mass Index 35.58 (112.49 kg, 177.80 cm) db MDM: 10:59 Patient medically screened. rt 13:47 Differential diagnosis: acute myocardial infarction, acute pericarditis, chest wall rt pain, pericarditis, pleurisy, pneumonia, pneumothorax. HEART Score: History: Highly Suspicious (2), ECG: Normal (0), Age: > or = 65 years (2), Risk Factors: > or = 3 Risk factors for atherosclerotic disease (2), Troponin: < or = 1 x Normal Limit (0), Total Score = 6. Data reviewed: vital signs, nurses notes, lab test result(s), EKG, radiologic studies. ED course: She presents to the ED with a chest pain, relieved with rest. Given history, will admit for further care as heart score is 6. No acute ischemia noted on EKG, labs.. 03/31 11:20 Order name: CBC w/o diff; Complete Time: 12:26 rt 03/31 11:20 Order name: CMP; Complete Time: 12:26 rt 03/31 11:20 Order name: Troponin High Sensitivity; Complete Time: 12:26 rt 03/31 11:20 Order name: BNP; Complete Time: 12:26 rt 03/31 13:51 Order name: COVID-19 SARS RT PCR rt 03/31 11:20 Order name: Chest Single View XRAY; Complete Time: 12:42 rt Administered Medications: 11:42 Drug: Aspirin 325 mg Route: PO; db 13:50 Follow up: Response: No adverse reaction db Disposition Summary: 03/31/22 13:32 Hospitalization Ordered Hospitalization Status: Observation rt Provider: Garrick Carter rt Location: Telemetry/MedSurg (observation) rt Condition: Stable rt Problem: an acute exacerbation rt Symptoms: have improved rt Bed/Room Type: Standard rt Room Assignment: 215(03/31/22 17:40) dw Diagnosis - Chest pain, unspecified rt Forms: - Medication Reconciliation Form rt - SBAR form rt Signatures: Dispatcher [employer] Elli Garcia RN RN dw Benton, Danielle, RN RN Isai Lopez MD MD rt Corrections: (The following items were deleted from the chart) 15:12 13:51 SARS-COV-2 Antigen Rapid+I.LAB.BRZ ordered. EDIN EDMS 17:40 13:32 rt dw
--- NOTE | 2022-03-31 13:33 | ER ---
Nurse's Notes [facility] Name: Jaxon Ayala III Age: 76 yrs Sex: Male : 1945 Arrival Date: 03/31/2022 Time: 10:54 Bed 15 Private MD: Kayla Young C Diagnosis: Chest pain, unspecified Presentation: 03/31 11:20 Chief complaint: Patient states: lightheaded, weakness, CP, SOB, more than usual, SOB db w/exertion more in the last couple of days. hx of 3 stents. Denies chest pain now. Coronavirus screen: Vaccine status: Patient reports receiving the 2nd dose of the covid vaccine. Client denies travel out of the [place] in the last 14 days. At this time, the client does not indicate any symptoms associated with coronavirus-19. Ebola Screen: Patient negative for fever greater than or equal to 101.5 degrees Fahrenheit, and additional compatible Ebola Virus Disease symptoms Patient denies exposure to infectious person. Patient denies travel to an Ebola-affected area in the 21 days before illness onset. No symptoms or risks identified at this time. Initial Sepsis Screen: Does the patient meet any 2 criteria? No. Patient's initial sepsis screen is negative. Does the patient have a suspected source of infection? No. Patient's initial sepsis screen is negative. Risk Assessment: Do you want to hurt yourself or someone else? Patient reports no desire to harm self or others. Onset of symptoms was March 31, 2022. 11:20 Method Of Arrival: Ambulatory db 11:20 Acuity: DEMI 2 db Triage Assessment: 11:22 General: Appears in no apparent distress. comfortable, Behavior is calm, cooperative, db appropriate for age, quiet. Pain: Denies pain. Complains of pain in chest. EENT: No deficits noted. Neuro: No deficits noted. Level of Consciousness is awake, alert, obeys commands, Oriented to person, place, time, situation, Appropriate for age Moves all extremities. Speech is normal, Facial symmetry appears normal, Pupils are PERRLA. Cardiovascular: Reports chest pain, shortness of breath, since chest pain has resolved. shortness of breath on exertion. Respiratory: Airway is patent Respiratory effort is even, unlabored, Respiratory pattern is regular, symmetrical, Parent/caregiver reports the patient having shortness of breath. Respiratory: Parent/caregiver reports the patient having shortness of breath on exertion. GI: No deficits noted. No signs and/or symptoms were reported involving the gastrointestinal system. : No deficits noted. No signs and/or symptoms were reported regarding the genitourinary system. Derm: No deficits noted. No signs and/or symptoms reported regarding the dermatologic system. Musculoskeletal: No deficits noted. No signs and/or symptoms reported regarding the musculoskeletal system. Historical: - Allergies: 11:22 Morphine; db - Home Meds: 15:27 alpha lipoic acid 100 mg Oral cap daily [Active]; aspirin 81 mg Oral chew 1 tab once db daily [Active]; atorvastatin 80 mg oral tab 1 tab nightly [Active]; chondroitin-glucosamine 1500 mg daily [Active]; clopidogrel 75 mg Oral tab 1 tab once daily [Active]; coenzyme Q10 10 mg Oral cap 1 tab daily [Active]; cyanocobalamin (vitamin B-12) 1,000 mcg Oral tab 1 tab daily [Active]; empagliflozin 25 mg oral tab .5 tab once daily [Active]; famotidine 20 mg Oral tab 1 tab 2 times per day for reflux esophagitis [Active]; Fish Oil 1,000 mg oral cap daily [Active]; glipizide 10 mg Oral tab 1 tab 2 times per day [Active]; insulin aspart subcutaneous after meals [Active]; insulin glargine 100 unit/mL Sub-Q soln twice a day [Active]; isosorbide mononitrate 60 mg Oral Tb24 1 tab once daily [Active]; lisinopril 20 mg oral tab 1 tab twice a day [Active]; multivitamin oral cap daily [Active]; terazosin 10 mg Oral cap 1 cap nightly [Active]; melatonin 5 mg Oral tab nightly [Active]; metoprolol tartrate 50 mg oral tab 2 times per day [Active]; gabapentin 300 mg Oral cap 1 cap 3 times per day [Active]; hydrochlorothiazide 50 mg oral tab 1 tab once daily [Active]; 15:42 zolpidem 5 mg Oral tab 1 tab once daily for sleep-onset insomnia [Active]; db - PMHx: 11:22 CAD; Diabetes - IDDM; Hyperlipidemia; Hypertension; TIA; db - PSHx: 11:22 Stented artery; db - Immunization history:: Client reports receiving the 2nd dose of the Covid vaccine. - Social history:: Smoking status: Patient denies any tobacco usage or history of. - Family history:: not pertinent. Screenin:24 [facility] ED Fall Risk Assessment (Adult) Score/Fall Risk Level 0 - 2 = Low Risk db Oriented to surroundings. Humpty Dumpty Scale Fall Assessment Tool (age< 18yrs) Age 13 years and above (1 pt) Gender Male (2 pts) Diagnosis Other diagnosis (1 pt) Cognitive Impairments Oriented to own ability (1 pt) Environmental Factors Patient placed in bed (2 pts) Fall Risk Score/ Level Low Fall Risk: </= 11 points Oriented to surroundings. Abuse screen: Denies threats or abuse. Denies injuries from another. Nutritional screening: No deficits noted. Tuberculosis screening: No symptoms or risk factors identified. Fall Risk No fall in past 12 months (0 pts). No secondary diagnosis (0 pts). No IV (0 pts). Ambulatory Aid- None/Bed Rest/Nurse Assist (0 pts). Gait- Normal/Bed Rest/Wheelchair (0 pts) Mental Status- Oriented to own ability (0 pts). Total Patel Fall Scale indicates No Risk (0-24 pts). Assessment: 11:24 Reassessment: see triage for initial assessment. Pain: Complains of pain in chest Pain db does not radiate. Pain began 2-3 days ago. 12:30 Reassessment: Patient appears in no apparent distress at this time. No changes from db previously documented assessment. Patient and/or family updated on plan of care and expected duration. Pain level reassessed. Patient is alert, oriented x 3, equal unlabored respirations, skin warm/dry/pink. Patient states symptoms have improved. 13:44 Reassessment: Patient appears in no apparent distress at this time. No changes from db previously documented assessment. Patient and/or family updated on plan of care and expected duration. Pain level reassessed. Patient is alert, oriented x 3, equal unlabored respirations, skin warm/dry/pink. patient ambulatory to restroom with steady gate. In NAD. 15:30 Reassessment: Patient appears in no apparent distress at this time. No changes from db previously documented assessment. Patient and/or family updated on plan of care and expected duration. Pain level reassessed. Patient is alert, oriented x 3, equal unlabored respirations, skin warm/dry/pink. 16:30 Reassessment: Patient appears in no apparent distress at this time. No changes from db previously documented assessment. Patient and/or family updated on plan of care and expected duration. Pain level reassessed. Patient is alert, oriented x 3, equal unlabored respirations, skin warm/dry/pink. 17:56 Reassessment: Patient appears in no apparent distress at this time. No changes from db previously documented assessment. Patient and/or family updated on plan of care and expected duration. Pain level reassessed. Patient is alert, oriented x 3, equal unlabored respirations, skin warm/dry/pink. Vital Signs: 11:20 BP 137 / 64; Pulse 58; Resp 18; Temp 98.8; Pulse Ox 98% on R/A; Weight 112.49 kg; db Height 5 ft. 10 in. (177.80 cm); Pain 0/10; 12:30 BP 126 / 61; Pulse 54; Resp 18; Pulse Ox 99% on R/A; db 13:30 BP 121 / 65; Pulse 55; Resp 15; Pulse Ox 100% on R/A; db 17:57 BP 130 / 59; Pulse 55; Resp 16; Pulse Ox 100% on R/A; db 11:20 Body Mass Index 35.58 (112.49 kg, 177.80 cm) db ED Course: 10:54 Patient arrived in ED. mr 10:54 Kayla Young MD is Private Physician. mr 10:58 Isai Norwood MD is Attending Physician. rt 10:59 Dina Tatum, RN is Primary Nurse. db 11:22 Triage completed. db 11:22 Arm band placed on right wrist. Patient placed in an exam room. db 11:24 Patient has correct armband on for positive identification. Bed in low position. Call db light in reach. Side rails up X 1. Client placed on continuous cardiac and pulse oximetry monitoring. NIBP monitoring applied. Warm blanket given. 11:24 Patient maintains SpO2 saturation greater than 95% on room air. db 11:35 Inserted saline lock: 20 gauge in right antecubital area, using aseptic technique. db Blood collected. 12:25 X-ray completed. Portable x-ray completed in exam room. Patient tolerated procedure mh1 well. 12:26 Chest Single View XRAY In Process Unspecified. EDMS 13:31 Garrick Carter is Hospitalizing Provider. rt 17:51 called to give report nurse states is not ready and will call back. db 17:55 No provider procedures requiring assistance completed. Patient admitted, IV remains in db place. Administered Medications: 11:42 Drug: Aspirin 325 mg Route: PO; db 13:50 Follow up: Response: No adverse reaction db Medication: 11:24 VIS not applicable for this client. db Outcome: 13:32 Decision to Hospitalize by Provider. rt 17:55 Admitted to Tele db 17:55 Condition: stable 17:55 Instructed on the need for admit. 18:05 Patient left the ED. eb Signatures: Dispatcher [employer] EDSC AvilaBella mr MyronFlora [facility] Zeina Antoine Danielle, JON RN db Isai Norwood MD MD rt
--- NOTE | 2022-03-31 16:00 | P.HP ---
Certification for Inpatient Patient admitted to: Observation With expected LOS: <2 Midnights Practitioner: I am a practitioner with admitting privileges, knowledge of patient current condition, hospital course, and medical plan of care. Services: Services provided to patient in accordance with Admission requirements found in Title 42 Section 412.3 of the Code of Federal Regulations Patient History Date of Service: 03/31/22 Reason for admission: Chest pain History of Present Illness: 76-year-old gentleman with a history of coronary artery disease status post stent, last cardiac cath with 2 stents placement 1 year, history of diabetes mellitus type 2 presented to the emergency department with a complaint of intermittent chest pain which per patient has been chronic since his last stent. He stated the chest pain has been worse since yesterday, symptoms associated with easy fatigue and dyspnea on exertion. He denied any cough or shortness of breath at rest or wheezing. His spouse stated patient has a 75 occlusion of his LAD. Initial troponin is negative, chest x-ray shows no acute disease. Cardiology Dr. Hernandez informed and patient hospitalized for ACS rule out. Allergies morphine Allergy (Unverified 11/04/16 14:50) Unknown - Past Medical/Surgical History -: Hypertension -: Diabetes mellitus type 2 -: Coronary artery disease -: Obstructive sleep apnea -: Coronary stent - Family History Father -: Diabetes - Social History Smoking Status: Former smoker Alcohol use: No CD- Drugs: No Place of Residence: Home Review of Systems Other: Except as documented, all other systems reviewed and negative. Physical Examination - Physical Exam General: Alert, In no apparent distress, Oriented x3 HEENT: Mucous membr. moist/pink Neck: Supple, JVD not distended Respiratory: Clear to auscultation bilaterally, Normal air movement Cardiovascular: No edema, Regular rate/rhythm, Normal S1 S2, No murmurs Gastrointestinal: Normal bowel sounds, Soft and benign, Non-distended, No tenderness Musculoskeletal: No swelling, No tenderness Integumentary: No rashes, No tenderness/swelling Neurological: Normal strength at 5/5 x4 extr, Cranial nerves 3-12 intact Lymphatics: No axilla or inguinal lymphadenopathy - Studies Laboratory Data (last 24 hrs) 03/31/22 11:35: Sodium 138, Potassium 3.5, BUN 16, Creatinine 1.37 H, Glucose 264 H, Total Bilirubin 0.7, AST 26, ALT 33, Alkaline Phosphatase 73 03/31/22 11:35: WBC 7.10, Hgb 13.1 L, Hct 37.5 L, Plt Count 181 Assessment and Plan - Problems (Diagnosis) (1) Chest pain Current Visit: Yes Status: Acute (2) Coronary artery disease Current Visit: Yes Status: Acute (3) Obstructive sleep apnea Current Visit: Yes Status: Acute (4) Type 2 diabetes mellitus Current Visit: Yes Status: Acute - Plan Placed under observation on the medical floor. Continue to trend troponin Treat with aspirin, Metoprolol. NTG. Cardiology consult. Further management pending troponin result. CPAP during sleep for obstructive sleep apnea. Insulin sliding scale for glucose management. Reconcile and continue home medications. - Advance Directives Does patient have a Living Will: No Does patient have a Durable POA for Healthcare: No
[2022-03-31] MEDS ORDERED: MORPHINE 2 MG/ML SYR IV PRN (19:28)
[2022-03-31] MEDS ORDERED: NITROGLYCERIN 0.4 MG/TAB SL PRN (19:28)
[2022-03-31] MEDS: INSULIN -REGULAR HUMAN 50 UNIT/0.5 ML ML SQ SCH ×2 (19:28→20:14)
[2022-03-31 20:35] LABS: Troponin High Sensitivity 10.8 pg/mL (<58.9)
[2022-03-31 21:47] VITALS: BMI 36.1
[2022-03-31] MEDS ORDERED: TERAZOSIN HCL 5 MG CAP PO PRN (22:15)
[2022-03-31] MEDS ORDERED: ZOLPIDEM TARTRATE 5 MG TABLET PO PRN (22:15)
[2022-03-31] MEDS ORDERED: ATORVASTATIN 80 MG TAB PO SCH (22:17)
[2022-03-31] MEDS: METOPROLOL TAR 50 MG TAB PO SCH (23:30)
[2022-04-01 01:55] VITALS: O2SAT 97
[2022-04-01 03:45] LABS: Absolute Lymphocytes (CBC) 2.1 K/uL (0.7-4.9); Hematocrit 34.8 % (39.6-49.0); Lymphocytes % 23.5 % (15.3-44.8); MCV 88.5 fL (80-100); MPV 7.8 fL (7.6-11.3); RBC Red Blood Cell Count 3.93 M/uL (4.33-5.43)
[2022-04-01 03:56] LABS: Potassium 3.4 mmol/L (3.5-5.1)
[2022-04-01] MEDS: METOPROLOL TAR 50 MG TAB PO SCH (08:58)
[2022-04-01] MEDS: INSULIN -REGULAR HUMAN 50 UNIT/0.5 ML ML SQ SCH ×3 (08:58→17:26)
[2022-04-01] MEDS ORDERED: ASPIRIN EC 81 MG TAB PO SCH (09:00)
--- NOTE | 2022-04-01 17:01 | P.DS ---
Admission Date: 03/31/22 Discharge Date: 04/01/22 Disposition: ROUTINE DISCHARGE Discharge Condition: FAIR Reason for Admission: Chest pain - Problems (1) Chest pain Current Visit: Yes Status: Acute (2) Coronary artery disease Current Visit: Yes Status: Acute (3) Obstructive sleep apnea Current Visit: Yes Status: Acute (4) Type 2 diabetes mellitus Current Visit: Yes Status: Acute Brief History of Present Illness: 76-year-old gentleman with a history of coronary artery disease status post stent, last cardiac cath with 2 stents placement 1 year, history of diabetes mellitus type 2 presented to the emergency department with a complaint of intermittent chest pain which per patient has been chronic since his last stent. He stated the chest pain has been worse since yesterday, symptoms associated with easy fatigue and dyspnea on exertion. He denied any cough or shortness of breath at rest or wheezing. His spouse stated patient has a 75% occlusion of his LAD. Initial troponin is negative, chest x-ray showed no acute disease. Cardiology Dr. Hernandez informed and patient hospitalized for ACS rule out. Hospital Course: Patient placed under observation on the medical floor. Troponin trended negative. Patient seen by Dr. Hernandez today who recommended discharge for outpatient stress test. Patient currently has no complain. Vitals are stable. Patient is discharged. His home medications have been continued on discharge. Vital Signs/Physical Exam: Temp Pulse Resp BP Pulse Ox 96.9 F 58 16 123/56 L 94 04/01/22 12:00 04/01/22 12:00 04/01/22 12:00 04/01/22 12:00 04/01/22 12:00 General: Alert, In no apparent distress, Oriented x3 HEENT: Mucous membr. moist/pink Neck: Supple, JVD not distended Respiratory: Clear to auscultation bilaterally, Normal air movement Cardiovascular: No edema, Regular rate/rhythm, Normal S1 S2 Gastrointestinal: Soft and benign, Non-distended, No tenderness Musculoskeletal: No swelling Integumentary: No breakdown Neurological: Normal strength at 5/5 x4 extr Laboratory Data at Discharge: WBC 9.00 K/uL (4.3-10.9) 04/01/22 03:28 Hgb 12.3 g/dL (13.6-17.9) L 04/01/22 03:28 Hct 34.8 % (39.6-49.0) L 04/01/22 03:28 Plt Count 182 K/uL (152-406) 04/01/22 03:28 Sodium 139 mmol/L (136-145) 04/01/22 03:28 Potassium 3.4 mmol/L (3.5-5.1) L 04/01/22 03:28 BUN 18 mg/dL (7-18) 04/01/22 03:28 Creatinine 1.24 mg/dL (0.70-1.30) 04/01/22 03:28 Glucose 115 mg/dL (74-106) H 04/01/22 03:28 Total Bilirubin 0.7 mg/dL (0.2-1.0) 03/31/22 11:35 AST 26 U/L (15-37) 03/31/22 11:35 ALT 33 U/L (16-61) 03/31/22 11:35 Alkaline Phosphatase 73 U/L (45-117) 03/31/22 11:35 Triglycerides 375 mg/dL (<150) H 03/31/22 19:59 Cholesterol 130 mg/dL (<200) 03/31/22 19:59 HDL Cholesterol 37 mg/dL (40-60) L 03/31/22 19:59 Cholesterol/HDL Ratio 3.51 03/31/22 19:59 Home Medications: Aspirin Chewable [Aspirin Chewable*] 81 mg PO DAILY 03/31/22 Atorvastatin Calcium [Lipitor] 80 mg PO BEDTIME 03/31/22 Clopidogrel Bisulfate [Plavix*] 75 mg PO DAILY 03/31/22 Cyanocobalamin (Vitamin B-12) [B-12] 1,000 mcg PO DAILY 03/31/22 Diclofenac Sodium [Arthritis Pain] 1 appl TP BIDP PRN 03/31/22 Famotidine [Pepcid] 0.5 mg PO BIDP PRN 03/31/22 Gabapentin 300 mg PO TID 03/31/22 Glucos Sul 2Kcl/MSM/Chond/C/Mn [Glucosamine Chondroitin Cap] 1 each PO DAILY 03/31/22 Hydrochlorothiazide 50 mg PO DAILY 03/31/22 Insulin Aspart [Insulin Aspart Flexpen] 25 unit SQ SEECOM 03/31/22 Insulin Aspart [Insulin Aspart Flexpen] 30 unit SQ ACB 03/31/22 Insulin Glargine,Hum.rec.anlog [Insulin Glargine] 35 unit SQ BEDTIME 03/31/22 Insulin Glargine,Hum.rec.anlog [Insulin Glargine] 85 unit SQ DAILY 03/31/22 Isosorbide Mononitrate [Isosorbide Mononitrate ER] 60 mg PO DAILY 03/31/22 Lisinopril [Zestril] 40 mg PO DAILY 03/31/22 Melatonin 5 mg PO BEDTIME 03/31/22 Metformin ER [Glucophage ER*] 1,000 mg PO DAILY 03/31/22 Metformin HCl [Metformin HCl ER] 500 mg PO DAILY AT SUPPER 03/31/22 Metoprolol Tartrate 0.5 tab PO BID 03/31/22 Multivitamin 1 each PO DAILY 03/31/22 Surveyor-3/Dha/Epa/Fish Oil [Fish Oil 1,000 mg Softgel] 1,000 mg PO DAILY 03/31/22 Terazosin HCl 10 mg PO BEDTIME 03/31/22 Ubidecarenone [Coenzyme Q10] 1 tab PO DAILY 03/31/22 Zolpidem Tartrate [Ambien*] 5 mg PO BEDTIME PRN 03/31/22 glipiZIDE [Glipizide] 20 mg PO ACB 03/31/22 Diet: ADA Activity: Ad silke Followup: Homero Young MD [Primary Care Provider] - Kelechi Hernandez MD [ACTIVE - CAN ADMIT] - 1 Week (Please call office for arrangement for stress test.)
[2022-04-01 17:11] VITALS: BP 132/62; TEMP 97.2
--- NOTE | 2022-04-05 14:04 | EKG ---
Test Date: 2022-03-31 Test Time: 11:15:14 Customer Field Representative: SAMUEL MEASUREMENT RESULTS: Intervals: Rate: 60 DE: 192 QRSD: 90 QT: 446 QTc: 446 [place]: P: 67 DE: 192 QRS: -23 T: 59 INTERPRETIVE STATEMENTS: Normal sinus rhythm Normal ECG Compared to ECG 06/04/2019 12:00:55 No significant changes Electronically Signed On 04-05-22 14:01:03 [employer]ES [employer]PRESENT[employer] by Kelechi Hernandez
--- NOTE | 2022-04-11 06:13 | CON ---
Date of Consultation: 04/02/2022 Reason For Consultation: Chest pain. History Of Present Illness: A 76-year-old male with history of coronary artery disease, status post multiple cardiac stents, last one was about a year ago. Has diabetes and hypertension, obstructive s leep apnea, presented with chest pain with some dyspnea on exertion. Pain is not related to exertion per se and since hospitalization, pain completely resolved. The patient has been comfortable. Dillon es having any other complaints. Past Medical History: As outlined above in the HPI. Medications: Refer to reconciliation sheet for detailed list. Allergies: MORPHINE. Family History: No premature coronary artery disease or cancer. Social History: He does not smoke or drink or use any drugs. He is an ex-smoker. Review of Systems: All systems reviewed and they were negative except what mentioned in HPI. Physical Examination: Vital Signs: Reviewed. Head and Neck: Pupils are equal, reactive to light. Intact eye movements. No JVD. No cervical lym phadenopathy. Neck is supple. Thyroid is not enlarged. Lungs: Clear to auscultation bilaterally. No rhonchi, wheezing, or crackles. No accessory muscle u se. Heart: Regular rate and rhythm. No extra sounds. Abdomen: Soft, nontender. Bowel sounds positive. No organomegaly. No masses or hernia. No rigidi ty or rebound. Extremities: No edema, clubbing, or cyanosis. Intact pulses. Skin: No rash. Neurologic: Alert, awake, oriented x3. No acute focal deficits appreciated. Investigations: BUN 18, creatinine 1.24. Troponin 3 sets are negative. Assessment And Recommendations: 1.Chest pain. No acute EKG abnormalities and cardiac enzymes are negative and the patient has been pain free. He is known to have history of coronary artery disease, so I recommend an outpatient stre ss test and an echocardiogram. 2.Dyslipidemia. Continue statin and from Cardiology standpoint, the patient can be released to [place] as an outpatient for stress test and an echo, and the patient was instructed to come back to [facility] emergency room immediately with further chest pain. SR/MODL Voice ID: [id number] Report ID: [id number]
== END 2022-04-01 17:40 | disposition home or self-care (01) ==
LOC: ER 10:51 → ERHOLD 15:37 → 2ND 17:53
PROVIDERS: ADMIT Internal Medicine; ATTEND Internal Medicine
DX: R07.9 Chest pain, unspecified (principal); I25.10 Atherosclerotic heart disease of native coronary artery without angina pectoris; E11.9 Type 2 diabetes mellitus without complications; G47.33 Obstructive sleep apnea (adult) (pediatric); E78.5 Hyperlipidemia, unspecified; Z95.5 Presence of coronary angioplasty implant and graft; Z88.6 Allergy status to analgesic agent
CPT/HCPCS: 93005; 85025; 80048; 36415; 80061; 82947 ×4; 85027; 84484 ×3; 80053; 83880; 71045; 99285; U0003; J1815 ×3; G0378